=== PATIENT | male | born 1995 | race Caucasian/White ===

== ENCOUNTER 2021-01-29 19:14 | Emergency (ER) | payer OTHER ==
[2021-01-29 19:59] LABS: BASOPHIL 0.5 % (0-2); EOSINOPHIL 0 % (0-5); HCT 44.2 % (42.0-52.0); HGB 15.1 g/dl (13.2-18.0); LYMPHOCYTE 20.5 % (15-48); MCH 29.4 pg (25.0-31.0); MCHC 34.2 g/dL (32.0-36.0); MCV 86.2 fL (78.0-100.0); MONOCYTE 8.9 % (0-12); MPV 9.4 fL (6.0-9.5); NEUTROPHIL 69.7 % (41-80); NRBC 0; PLT 252 K/uL (150-400); RBC 5.13 M/uL (4.70-6.00); RDW 13.1 % (11.5-14.0); WBC 7.6 K/uL (4.0-10.5)
[2021-01-29 20:27] LABS: BUN/CREAT RATIO (CALC) 15.6 RATIO; CREATININE 0.96 mg/dL (0.67-1.17); MAGNESIUM 1.8 mg/dL (1.8-2.4); POTASSIUM 4.2 mmol/L (3.5-5.1)
[2021-01-29 21:19] LABS: AMPHETAMINES NEGATIVE (NEGATIVE); BARBITURATES NEGATIVE (NEGATIVE); ECSTASY (MDMA) NEGATIVE (NEGATIVE); MARIJUANA (THC) POSITIVE (NEGATIVE); METHADONE NEGATIVE (NEGATIVE); OPIATES NEGATIVE (NEGATIVE); OXYCODONE NEGATIVE (NEGATIVE)
== END 2021-01-29 23:14 | disposition home or self-care (01) ==
LOC: FER 19:14
PROVIDERS: Emergency Medicine; Nurse Practitioner Family
DX: R07.89 Other chest pain (principal); R00.1 Bradycardia, unspecified; I45.10 Unspecified right bundle-branch block; F17.200 Nicotine dependence, unspecified, uncomplicated
CPT/HCPCS: 36415; 71045; 80048; 80305; 83735; 84484; 85025; 85379; 93005; J0461; J7030